=== PATIENT | female | born 1960 | race Caucasian/White ===

== ENCOUNTER 2024-11-07 20:05 | Emergency (ER) | payer MEDICARE ==
[~2024-11-07] VITALS: Ht 160 cm; Wt 104.5 kg
[2024-11-07 20:10] VITALS: BP 149/70; PULSE 79; RESP 16; O2SAT 98
[2024-11-07] MEDS ORDERED: METF-1211 PO (20:17)
[2024-11-07] MEDS ORDERED: AMLO-257 PO (20:17)
[2024-11-07] MEDS: BACITRACIN 28 GM OINTMENT TP ONE (22:53)
[2024-11-07] MEDS: IBUPROFEN 400 MG TABLET PO ONE (22:53)
== END 2024-11-07 23:23 | disposition home or self-care (01) ==
LOC: EMS 20:07
DX: T23.252A Burn of second degree of left palm, initial encounter (principal); E11.9 Type 2 diabetes mellitus without complications; I10 Essential (primary) hypertension; Z79.84 Long term (current) use of oral hypoglycemic drugs; Z79.899 Other long term (current) drug therapy; X15.3XXA Contact with hot saucepan or skillet, initial encounter; Y93.89 Activity, other specified; Y92.89 Other specified places as the place of occurrence of the external cause; Y99.8 Other external cause status
CPT/HCPCS: 16020; 99282; Z7502; Z7610